=== PATIENT | female | born 1960 | race Caucasian/White ===

== ENCOUNTER → 2016-10-30 | Outpatient (CLI) | payer BC ==
[~2016-10-30] MED LIST: ADV500INH INH; ALBU17IN INH; ATOR40TA75 PO; CYCL5TA PO; CYMB1CAP5 PO; DEXI60CA2 PO; DOXE10CA PO; GLIM2TAB PO; INVO100T PO; LISI-542 PO; MECL-68 PO; MELO15TA4 PO; PARO40TA2 PO; RANI300C PO; SOMA350T PO; SUCR1SS PO
--- NOTE | 2016-10-30 13:27 | REP ---
Clinical: Lung screening. History of COPD. Comparison: None Technique: Axial low-dose noncontrast images from the thoracic inlet to the upper abdomen using lung screening technique. Findings: The lung quijano are well-aerated and minimal emphysematous changes are appreciated bilaterally. A small 6 mm density is identified in the deep right posterolateral sulcus (image 72) which likely represents scarring. A subtle 3 mm non solid nodule is identified in the right upper lobe (image 42). No consolidation, pleural effusion/reaction or pneumothorax. Tracheobronchial tree is patent. Mediastinum demonstrates mild atherosclerotic changes of the coronary arteries without cardiomegaly. Impression: Lung-RADS category III. Findings described above are likely probably benign and based on recommendations, a 6-month low-dose CT reevaluation is recommended. Signed by Quan Gilliland MD 10/30/2016 01:19 P
== END ==
LOC: M RAD 12:42
PROVIDERS: ATTEND Internal Medicine Pulmonary Disease
DX: R91.8 Other nonspecific abnormal finding of lung field (principal)

== ENCOUNTER → 2018-09-07 | Outpatient (REF) | payer BC ==
[~2018-09-07] MED LIST changes: -CYCL5TA PO; +CYCL5TAB5 PO; +MELO15TA28 PO; -MELO15TA4 PO
== END ==
LOC: M LAB LCGH 17:34
PROVIDERS: ATTEND Surgery
DX: L72.3 Sebaceous cyst (principal)